=== PATIENT | male | born 1995 | race Caucasian/White ===

== ENCOUNTER 2018-06-28 11:31 | Emergency (ER) | payer BC ==
[2018-06-28 11:36] VITALS: BP 124/74; PULSE 77; TEMP 98.5; BMI 25.7
[2018-06-28] MEDS ORDERED: DOXYCYCLINE HYCLATE 100 MG CAPSULE PO ONE ×2 (11:55→11:59)
--- NOTE | 2018-06-28 12:03 | PDOC ---
Attending Attestation - Resident Resident Name: KaitTana - ED Attending Attestation I have performed the following: I have examined & evaluated the patient, The case was reviewed & discussed with the resident, I agree w/resident's findings & plan, Exceptions are as noted - HPI HPI: 06/28/18 12:00 23 y M no pmhx here with tick bite. mother found engorged tick, unsure but thinks it was attached for 48 hrs. was unable to remove comletely. no rash. no fever or chills. no myalgia. no other comlaints. found on his left upper flank lateral thorax. - Physicial Exam PE: 06/28/18 12:01 awake alert NAD left lateral chest wall small but bite with central dark spot, tick head. mild surrounding erythema 1 mm. no exudate. no fluctuance. - Medical Decision Making 06/28/18 12:02 tick headremoved. tolerated well. bacitracin and guaze placed after. given doxycycline prophylaxis due to 48 hrs attachment . engorged tick. fl home pcp followup
--- NOTE | 2018-06-28 12:04 | PDOC ---
History of Present Illness - General Chief Complaint: Bite Stated Complaint: TICK BITE Time Seen by Provider: 06/28/18 11:37 - History of Present Illness Initial Comments: 06/28/18 11:59 The patient is a 23 year old male with no PMH who presents c/o tick bite w/tick embedded in his left lateral chest. Noticed tick earlier today, mother attempted to remove tick, however a piece remained embedded prompting their visit to the ED. Denies any fevers, body aches, rash. Past History - Past Medical History Allergies/Adverse Reactions: Allergies Allergy/AdvReac Type Severity Reaction Status Date / Time No Known Allergies Allergy Verified 06/28/18 11:31 Home Medications: Ambulatory Orders NK [No Known Home Medication] 06/28/18 COPD: No - Suicide/Smoking/Psychosocial Hx Smoking History: Former smoker Have you smoked in the past 12 months: No Number of Cigarettes Smoked Daily: 3 Information on smoking cessation initiated: No 'Breaking Loose' booklet given: 05/09/16 Hx Alcohol Use: Yes Drug/Substance Use Hx: No Substance Use Type: Alcohol Review of Systems - Review of Systems Constitutional: No: Fever Respiratory: No: Shortness of Breath Cardiac (ROS): No: Chest Pain Integumentary: No: Rash *Physical Exam - Vital Signs Last Vital Signs Temp Pulse Resp BP Pulse Ox 98.5 F 77 18 124/74 100 06/28/18 11:31 06/28/18 11:31 06/28/18 11:31 06/28/18 11:31 06/28/18 11:31 - Physical Exam General Appearance: Yes: Nourished, Appropriately Dressed Integumentary: positive: Other (L lateral chest with 1 mm erythematous patch w/ embedded tick) Medical Decision Making - Medical Decision Making 06/28/18 12:03 23 year old male with tick embedded in L lateral chest. Anesthetized with 3 mL 1% lidocaine and 18 samantha needle + needle dedicated regional driver used to remove embedded tick body part. Patient tolerated procedure with no complications. OTD of Doxycline 200 mg PO and discharged home with supportive care. *DC/Admit/Observation/Transfer Diagnosis at time of Disposition: Tick bite - Discharge Dispostion Disposition: HOME Condition at time of disposition: Good Decision to Admit order: No - Referrals Referrals: Isaiah Tyson MD [Staff Physician] - - Patient Instructions Printed Discharge Instructions: How to Remove a Tick Additional Instructions: you were given a prophylactic dose of doxycycline to cover for potential lyme disease. wash tick bite daily with warm soap and water apply bacitracin ointment twice daily. return for fever, aches, rash or any concerns. follow up with your primary doctor call to schedule as needed. - Post Discharge Activity
== END 2018-06-28 12:02 | disposition home or self-care (01) ==
LOC: FER 11:31
PROC: 0HC5XZZ Extirpation of Matter from Chest Skin, External Approach (ICD-10-PCS; principal; 2018-06-28)
DX: S21.152A Open bite of left front wall of thorax without penetration into thoracic cavity, initial encounter (principal); W57.XXXA Bitten or stung by nonvenomous insect and other nonvenomous arthropods, initial encounter; Y93.89 Activity, other specified; Y92.89 Other specified places as the place of occurrence of the external cause
CPT/HCPCS: 99282-25

== ENCOUNTER 2020-12-05 16:18 | Emergency (ER) | payer BC ==
[2020-12-05 16:27] VITALS: BP 111/62; PULSE 55; TEMP 98.9; BMI 25.7
[2020-12-05] MEDS ORDERED: IBUPROFEN 400 MG TABLET (FP) PO ONE ×2 (16:47→16:55)
== END 2020-12-05 17:33 | disposition home or self-care (01) ==
LOC: JERFT 16:18 → JER 16:18 → JERFT 17:33
DX: S43.401A Unspecified sprain of right shoulder joint, initial encounter (principal)
CPT/HCPCS: 73000-TC-RT-FY; 73030-TC-RT-FY; 99284-25

== ENCOUNTER 2022-09-28 12:24 | Inpatient (IN) | payer BC ==
[2022-09-28 12:32] VITALS: BMI 27.7
[2022-09-28] MEDS ORDERED: SODIUM CHLORIDE 0.9% 500 ML INFUS.BAG IV ONE (12:42)
[2022-09-28] MEDS ORDERED: KETOROLAC TROMETHAMINE 15 MG/ML VIAL IVPUSH ONE (12:43)
[2022-09-28] MEDS ORDERED: KETOROLAC TROMETHAMINE 15 MG/ML VIAL ONE (12:52)
[2022-09-28 13:10] LABS: HEMATOCRIT 46.7 % (35.4-49); HEMOGLOBIN 16.4 G/dL (11.7-16.9); MCH 31.9 pg (25.7-33.7); MCHC 35.1 g/dl (32.0-35.9); MEAN CELL VOLUME 90.8 fl (80-96); MEAN PLT VOLUME 8.5 fl (7.5-11.1); PLATELET COUNT 221.1 10^3/uL (134-434); RBC 5.14 10^6/uL (4.00-5.60); RDW 13.6 % (11.9-15.9); WHITE BLOOD COUNT 10.4 10^3/uL (4.0-10.8)
[2022-09-28 13:15] LABS: ALBUMIN 3.9 g/dl (3.4-5.0); BILIRUBIN,TOTAL 1.1 mg/dl (0.2-1); CREATININE 3.9 mg/dl (0.55-1.3); TOT PROT 6.9 g/dl (6.4-8.2)
[2022-09-28 13:24] LABS: PLATELET ESTIMATE ADEQUATE
[2022-09-28] MEDS: LACTATED RINGERS SOLUTION 1,000 ML/1,000 ML INFUS.BAG IV SCH (15:50)
[2022-09-28 19:18] LABS: ALBUMIN 3.9 g/dl (3.4-5.0); BILIRUBIN,TOTAL 1.2 mg/dl (0.2-1); CALCIUM 8.6 mg/dl (8.5-10); CREATININE 3.8 mg/dl (0.55-1.3); TOT PROT 6.8 g/dl (6.4-8.2)
[2022-09-28] MEDS ORDERED: ACETAMINOPHEN 1000 MG/100 ML BAG IVPB ONE (19:45)
[2022-09-28 21:39] LABS: HIV INTERPRETATION NEGATIVE (NEGATIVE)
[2022-09-28] MEDS ORDERED: traMADol HCL 50 MG TABLET PO ONE (22:08)
[2022-09-29] MEDS: LACTATED RINGERS SOLUTION 1,000 ML/1,000 ML INFUS.BAG IV SCH (06:31)
[2022-09-29] MEDS ORDERED: ACETAMINOPHEN 325 MG TABLET (FP) PO PRN (08:37)
[2022-09-29] MEDS ORDERED: HEPARIN NA (PORCINE) 5,000 UNITS/ML 1ML VIAL SQ SCH (10:00)
[2022-09-29 10:55] LABS: BASO % 0.3 % (0-2.0); EOS % 1.8 % (0-4.5); HEMATOCRIT 40.9 % (35.4-49); MCH 31.4 pg (25.7-33.7); MCHC 34.2 g/dl (32.0-35.9); MEAN CELL VOLUME 91.8 fl (80-96); MEAN PLT VOLUME 8.7 fl (7.5-11.1); MONO % 11.5 % (3.8-10.2); NEUT % 69.4 % (42.8-82.8); PLATELET COUNT 226 10^3/uL (134-434); RBC 4.46 M/mm3 (4.00-5.60); RDW 13.5 % (11.9-15.9); WHITE BLOOD COUNT 8.4 K/mm3 (4.0-10.0)
[2022-09-29 11:17] LABS: BLOOD UREA NITROGEN 47.7 mg/dL (7-18); CALCIUM 8.4 mg/dL (8.5-10.1)
[2022-09-29 11:18] LABS: ALBUMIN 3.4 g/dl (3.4-5.0)
[2022-09-29 11:21] LABS: CREATININE 4.1 mg/dL (0.55-1.3)
[2022-09-29 11:22] LABS: BILIRUBIN,TOTAL 0.6 mg/dL (0.2-1); TOT PROT 6.3 g/dl (6.4-8.2)
[2022-09-29 13:51] VITALS: BP 140/91; PULSE 49; RESP 20; TEMP 98.5
[2022-10-02 14:08] LABS: TOTAL PROTEIN, URINE 22.3 mg/dL (Not Estab.)
[2022-10-02 23:06] LABS: ATYPICAL pANCA <1:20 titer (Neg:<1:20); C-ANCA <1:20 titer (Neg:<1:20)
[2022-10-04 19:07] LABS: ANTIGLOMERULAR BASEMENT MEN.AB <0.2 units (0.0-0.9)
== END 2022-09-29 13:10 | disposition left against medical advice (07) | DRG 684 ==
LOC: FER 12:24 → FM/S 15:24 → J6S 09-29 05:20
PROVIDERS: ADMIT Internal Medicine; ATTEND Internal Medicine
DX: N17.9 Acute kidney failure, unspecified (principal); M54.89 Other dorsalgia; R80.9 Proteinuria, unspecified; R31.9 Hematuria, unspecified
CPT/HCPCS: 0241U-QW; 36415; 76700-TC; 76856-TC; 80053; 81003; 81015; 82550; 82553; 83516; 83520; 84155; 84156; 84157; 84165; 85025; 85027; 86038; 86060; 86160; 86225; 86256; 86618; 87086; 87340; 87389; 87517; 87522; 93005; 99285-25